=== PATIENT | female | born 1960 | race Caucasian/White ===

== ENCOUNTER 2017-03-31 06:42 | Day surgery (SDC) | payer OTHER ==
[~2017-03-31] VITALS: Ht 167.6 cm; Wt 84.7 kg
[2017-03-31 08:02] VITALS: Ht 167.6 cm; Wt 84.7 kg
[2017-03-31] MEDS ORDERED: SIMV-39 PO (08:07)
[2017-03-31] MEDS ORDERED: HYDR25TA6 PO (08:07)
[2017-03-31 08:30] VITALS: BP 141/84; PULSE 65; RESP 16
[2017-03-31] MEDS ORDERED: FENTAnyl 50 MCG/ML VIAL ONE (09:55)
[2017-03-31] MEDS ORDERED: MIDAZOLAM 1 MG/ML 2 ML INJ ONE ×2 (09:55)
--- NOTE | 2017-03-31 09:57 | OPPN ---
Date/Time of Note Date/Time of Note DATE: 03/31/17 TIME: 09:54 Operative Report Preoperative Diagnosis Screening Postoperative Diagnosis Small right colon polyp was removed Diverticulosis of the colon Internal and external hemorrhoids Operation/Procedure Performed Colonoscopy and biopsy Surgeon see signature line insurance underwriting assistant None Anesthesia: moderate sedation Estimated blood loss: none Transfusion Required none Specimen Colon polyp biopsy Grafts/Implants none Complications none VETO COATS MD Mar 31, 2017 09:56
[2017-03-31 10:22] VITALS: BP 132/81; PULSE 66; RESP 12
--- NOTE | 2017-03-31 11:06 | GILP ---
DATE OF PROCEDURE: 03/31/2017 NAME OF PROCEDURES: Colonoscopy and biopsy. SURGEON: Veto Mckeon MD PREOPERATIVE DIAGNOSIS: Screening colonoscopy. POSTOPERATIVE DIAGNOSES 1. Colonoscopy all the way to the cecum. 2. Small right colon polyp was removed using the biopsy forceps. 3. Diverticulosis of the colon. 4. Internal and external hemorrhoids. PROCEDURE: Colonoscopy and biopsy. INDICATION FOR THE PROCEDURE: The patient is a 56-year-old female patient who was scheduled for scr eening colonoscopy. The procedure and possible complications were well explained to the patient. The patient understood and consented to the procedure. DESCRIPTION OF PROCEDURE: Under the influence of fentanyl and Versed, the colonoscope was carefully introduced in the rectum and under direct vision, it was advanced all the way to the cecum. FINDINGS: The patient had a small right colon polyp and it was removed using the biopsy forceps. S he was noted to have diverticulosis of the colon. She had internal and external hemorrhoids. She tolerated the procedure very well and there was no complication from the procedure. At the end of the procedure, she was awake with stable vital signs and she was discharged home to the care of h er family. IMPRESSION: Please see postoperative diagnoses. PLAN: 1. High fiber diet. 2. Anusol-HC 2.5% cream at bedtime p.r.n. for hemorrhoids. 3. Next screening colonoscopy in 10 years. Dictated By: VETO WELLS/MICHAEL Conf#: [id number] DID#: [id number]
== END 2017-03-31 10:23 | disposition home or self-care (01) ==
LOC: GIL 06:42
PROVIDERS: ATTEND Internal Medicine Gastroenterology
DX: Z12.11 Encounter for screening for malignant neoplasm of colon (principal); D12.6 Benign neoplasm of colon, unspecified; K57.90 Diverticulosis of intestine, part unspecified, without perforation or abscess without bleeding; K64.8 Other hemorrhoids; K64.4 Residual hemorrhoidal skin tags; I10 Essential (primary) hypertension
CPT/HCPCS: 45380; 88305; J2250; J3010